=== PATIENT | male | born 1975 | race Caucasian/White ===

== ENCOUNTER 2017-07-24 20:29 | Emergency (ER) | payer OTHER ==
[2017-07-24 20:37] VITALS: BP 137/93
--- NOTE | 2017-07-24 22:27 | ER Document Report ---
HPI - HPI Patient complains to provider of: cut right pinky finger Onset: Just prior to arrival Onset/Duration: Sudden Quality of pain: Throbbing Pain Level: 2 Context: 42 yo male accidentally cut right rth finger on plastic sheath of his right lower leg foot frop appliance. Tetanus is not current. Associated Symptoms: None Exacerbated by: Denies Relieved by: Denies - ROS ROS below otherwise negative: Yes Systems Reviewed and Negative: Yes All other systems reviewed and negative - DERM Skin Color: Normal Past Medical History - General Information source: Patient - Social History Smoking Status: Never Smoker Frequency of alcohol use: None Drug Abuse: None Lives with: Spouse/Significant other Family History: Reviewed & Not Pertinent Patient has suicidal ideation: No Patient has homicidal ideation: No - Medical History Medical History: Negative Renal/ Medical History: Denies: Hx Peritoneal Dialysis Surgical Hx: Negative Vertical Provider Document - CONSTITUTIONAL Agree With Documented VS: Yes Exam Limitations: No Limitations General Appearance: No Apparent Distress - INFECTION CONTROL TRAVEL OUTSIDE OF THE [place] IN LAST 30 DAYS: No - HEENT HEENT: Normocephalic - NECK Neck: Supple - RESPIRATORY O2 Sat by Pulse Oximetry: 97 - MUSCULOSKELETAL/EXTREMETIES Musculoskeletal/Extremeties: MAEW, FROM, Tender - see below - NEURO Level of Consciousness: Awake, Alert Motor/Sensory: No Motor Deficit, No Sensory Deficit - DERM Integumentary: Laceration - 1 cm partial thickness cut salter right 5th/pinky finger between the DIP and PIP. FROM Course - Vital Signs Vital signs: Temp Pulse Resp BP Pulse Ox 97.9 F 89 16 137/93 H 97 07/24/17 20:36 07/24/17 20:36 07/24/17 20:36 07/24/17 20:36 07/24/17 20:36 Discharge - Discharge Clinical Impression: right pinky finger cut steri strip close Condition: Good Disposition: HOME, SELF-CARE Instructions: Care of Steri-Strip Closure ([facility]), Temporary Splint ([facility]), Tetanus Immunization Given ([facility]) Additional Instructions: keep the wound clean and dry Splint this week Keep the Steri-Strips on for 1 week Return to the emergency room any concerns Satisfaction Forms: Return to Work
[2017-07-24] MEDS ORDERED: DIPH/PERTUSS(ACELL)/TETANUS VAC/PF 0.5 ML SYR (>=10YO) IM ONE (22:43)
== END 2017-07-24 23:50 | disposition home or self-care (01) ==
LOC: ER 20:29
DX: S61.216A Laceration without foreign body of right little finger without damage to nail, initial encounter (principal); W45.8XXA Other foreign body or object entering through skin, initial encounter
CPT/HCPCS: 90471; 90715; 99282